=== PATIENT | female | born 1980 | race American Indian/Alaskan Native ===

== ENCOUNTER 2020-06-09 09:31 | Emergency (ER) | payer MEDICAID, OTHER ==
--- NOTE | 2020-06-09 10:03 | EDM.PDOC ---
ED HPI GENERAL MEDICAL PROBLEM - General Chief Complaint: Upper Extremity Injury/Pain Stated Complaint: L INDEX FINGER INJURY Time Seen by Provider: 06/09/20 10:01 - History of Present Illness INITIAL COMMENTS - FREE TEXT/NARRATIVE: 39-year-old female presents to the emergency room with a left index finger injury. Patient got her finger caught in a closing door of a cabinet yesterday afternoon since this time the patient has noticed increased swelling pain and now redness and warmth in the finger. She is developed a little bump over the distal interphalangeal joint ulnar aspect has been draining a little bit of clear blo susanne fluid. From this place she has had increased redness warmth and tenderness in the finger she has redness extending nearly up to her wrist. Patient denies fevers or chills and otherwise does not feel ill. Patient denies any other complaints at this time. Left Finger-Index Pain Score (Numeric/FACES): 7 - Related Data Allergies Allergy/AdvReac Type Severity Reaction Status Date / Time No Known Allergies Allergy Verified 06/09/20 09:58 Home Meds: Home Meds cephALEXin [Keflex] 500 mg PO QID #40 capsule 06/09/20 [Rx] Past Medical History - Past Health History Medical/Surgical History: Denies Medical/Surgical History Social & Family History - Family History Family Medical History: No Pertinent Family History - Tobacco Use Tobacco Use Status *Q: Never Tobacco User - Caffeine Use Caffeine Use: Reports: None - Recreational Drug Use Recreational Drug Use: No Review of Systems - Review of Systems Review Of Systems: See Below Constitutional: Reports: No Symptoms Respiratory: Reports: No Symptoms Cardiovascular: Reports: No Symptoms GI/Abdominal: Reports: No Symptoms ED EXAM, GENERAL - Physical Exam Exam: See Below Exam Limited By: No Limitations General Appearance: Alert, No Apparent Distress Head: Atraumatic, Normocephalic Neck: Normal Inspection, Supple, Non-Tender, Full Range of Motion Respiratory/Chest: No Respiratory Distress, Lungs Clear, Normal Breath Sounds Cardiovascular: Regular Rate, Rhythm, No Edema, No Murmur Extremities: Other (Examination of her left hand shows a swollen index finger. It is red warm and she has red streaking up the dorsum of her hand almost to the level of the wrist. It is difficult to examine her finger because of discomfort and the swelling however it appears that she has no obvious deformity no significant joint tenderness this is all seems to be in the skin. When moving her fingers she gets a tightness in her fingers that she finds uncomfortable but moving her finger does not cause any deep discomfort. Manipulation of her fingers at the joints does not reveal any discomfort. Over the ulnar aspect of this digit over the DIPJ she has a tiny break in the skin. And she is developing a pustule.) Course - Vital Signs Last Recorded V/S: Last Vital Signs Temp 35.9 C L 06/09/20 09:41 Pulse 84 06/09/20 09:41 Resp 15 06/09/20 09:41 BP 125/72 06/09/20 09:41 Pulse Ox 100 06/09/20 09:41 - Orders/Labs/Meds Orders: Active Orders 24 hr Category Date Time Status Fingers Second Digit Lt F1 [CR] Stat Exams 06/09/20 09:51 Taken Labs: Laboratory Tests 06/09/20 06/09/20 Range/Units 10:32 10:32 WBC 10.62 H (3.98-10.04) K/mm3 RBC 4.42 (3.98-5.22) M/mm3 Hgb 12.7 (11.2-15.7) gm/dl Hct 39.5 (34.1-44.9) % MCV 89.4 (79.4-94.8) fl MCH 28.7 (25.6-32.2) pg MCHC 32.2 (32.2-35.5) g/dl RDW Std Deviation 44.2 (36.4-46.3) fL Plt Count 209 (182-369) K/mm3 MPV 10.8 (9.4-12.3) fl Neut % (Auto) 83.6 H (34.0-71.1) % Lymph % (Auto) 9.6 L (19.3-51.7) % [place] % (Auto) 5.8 (4.7-12.5) % Eos % (Auto) 0.8 (0.7-5.8) Baso % (Auto) 0.1 (0.1-1.2) % Neut # (Auto) 8.88 H (1.56-6.13) K/mm3 Lymph # (Auto) 1.02 L (1.18-3.74) K/mm3 [place] # (Auto) 0.62 H (0.24-0.36) K/mm3 Eos # (Auto) 0.08 (0.04-0.36) K/mm3 Baso # (Auto) 0.01 (0.01-0.08) K/mm3 Manual Slide Review Abnormal smear Sodium 139 (136-145) mEq/L Potassium 3.8 (3.5-5.1) mEq/L Chloride 103 (98-107) mEq/L Carbon Dioxide 24 (21-32) mEq/L Anion Gap 15.8 H (5-15) BUN 10 (7-18) mg/dL Creatinine 0.7 (0.55-1.02) mg/dL Est Cr Clr Drug Dosing 82.23 mL/min Estimated GFR (MDRD) > 60 (>60) mL/min BUN/Creatinine Ratio 14.3 (14-18) Glucose 97 (74-106) mg/dL Calcium 8.7 (8.5-10.1) mg/dL Total Bilirubin 0.5 (0.2-1.0) mg/dL AST 14 L (15-37) U/L ALT 20 (14-59) U/L Alkaline Phosphatase 123 H (46-116) U/L C-Reactive Protein 2.7 H* (<1.0) mg/dL Total Protein 7.5 (6.4-8.2) g/dl Albumin 3.6 (3.4-5.0) g/dl Globulin 3.9 gm/dL Albumin/Globulin Ratio 0.9 L (1-2) Meds: Medications Discontinued Medications Generic Name Dose Route Start Last Admin Trade Name Freq PRN Reason Stop Dose Admin Cefazolin Sodium/Dextrose 2 gm 50 mls @ 100 mls/hr 06/09/20 10:12 06/09/20 10:32 / Premix IV 06/09/20 10:41 100 mls/hr ONETIME ONE Administration - Re-Assessments/Exams Free Text/Narrative Re-Assessment/Exam: 06/09/20 11:41 X-rays of this affected digit shows no acute changes with the bony structures she has some soft tissue swelling.. White count is minimally elevated C- reactive protein is elevated. I discussed the treatment plan with the patient including the possibility of staying in the hospital for IV antibiotics and the patient wants to be discharged. She does not have a local doctor but agrees to follow-up in the hospital clinic on Friday she also agrees to return to the emergency room immediately if you think this is getting worse or if it is not improving. Departure - Departure Time of Disposition: 11:42 Disposition: Home, Self-Care 01 Clinical Impression: Cellulitis of left hand - Discharge Information Referrals: PCP,None [Primary Care Provider] - Forms: ED Department Discharge Additional Instructions: Return to the emergency room with any questions problems or worsening symptoms. Return in 24 hours if not improving. Follow-up in the hospital clinic on Friday for recheck. Their phone number is [phone]. You have an antibiotic that is been sent to the clinic pharmacy over the [facility] they will be open between noon and 2:00 this afternoon. Take this as directed. Started this evening. As we discussed use warm moist heat to the area every couple hours while awake. Sepsis Event Note (ED) - Evaluation Sepsis Screening Result: No Definite Risk - Focused Exam Vital Signs: Vital Signs Temp Pulse Resp BP Pulse Ox 06/09/20 09:41 35.9 C L 84 15 125/72 100 - My Orders Last 24 Hours: My Active Orders 06/09/20 09:51 Fingers Second Digit Lt F1 [CR] Stat - Assessment/Plan Last 24 Hours: My Active Orders 06/09/20 09:51 Fingers Second Digit Lt F1 [CR] Stat
[2020-06-09] MEDS ORDERED: ceFAZolin 2 GM in Premix Bag 1 BAG IV ONE (10:12)
--- NOTE | 2020-06-09 12:44 | CR ---
Left second finger: Frontal view of the hand was obtained as well as 3 views of the left second finger. Joint spaces are preserved. No acute fracture, dislocation or other bony abnormality is appreciated. Soft tissue swelling is noted within the second finger. Impression: 1. Soft tissue swelling within the left second finger. 2. No acute bony abnormality is appreciated. Diagnostic code #2
== END 2020-06-09 11:56 | disposition home or self-care (01) ==
LOC: JD.ED 09:31
DX: L03.012 Cellulitis of left finger (principal)
CPT/HCPCS: 36415; 73140; 80053; 85025; 86140; 96365; 99283; J0690